=== PATIENT | female | born 1990 | race Hispanic/Latino ===

== ENCOUNTER 2017-11-06 21:22 | Emergency (ER) | payer OTHER ==
--- NOTE | 2017-11-06 23:52 | ER ---
Nurse's Notes [facility] Name: Dasha Gtz Age: 26 yrs Sex: Female : 1990 Arrival Date: 11/06/2017 Time: 21:34 Bed 29 Private MD: Diagnosis: Acute pharyngitis Presentation: 11/06 22:13 Presenting complaint: Patient states: she is having flu-like symptoms with runny nose, bb and sore throat thinks she had fever but did not check pt is breast feeding. Transition of care: patient was not received from another setting of care. Onset of symptoms is unknown. Initial Sepsis Screen: Does the patient meet any 2 criteria? No. Patient's initial sepsis screen is negative. Does the patient have a suspected source of infection? No. Patient's initial sepsis screen is negative. Care prior to arrival: None. 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 - Social history:: Smoking status: Patient/guardian denies using tobacco, Patient/guardian denies using alcohol, street drugs. Screenin:30 Abuse screen: Denies threats or abuse. Denies injuries from another. Nutritional kr2 screening: No deficits noted. Tuberculosis screening: No symptoms or risk factors identified. Fall Risk None identified. Assessment: 22:30 General: Appears in no apparent distress. comfortable, well groomed, well developed, kr2 well nourished, Behavior is calm, cooperative, appropriate for age. Pain: Denies pain. Neuro: Level of Consciousness is awake, alert, obeys commands, Oriented to person, place, time, situation. Cardiovascular: Capillary refill < 3 seconds in bilateral fingers Patient's skin is warm and dry. Respiratory: Reports cough that is non-productive, Airway is patent Respiratory effort is even, unlabored, Respiratory pattern is regular, symmetrical, Breath sounds are clear bilaterally. GI: Abdomen is flat, non-distended. : No signs and/or symptoms were reported regarding the genitourinary system. EENT: Nares are clear bilaterally Oral mucosa is moist. EENT: Reports nasal congestion sore throat. Derm: Skin is intact, is healthy with good turgor, Skin is pink, warm \T\ dry. Musculoskeletal: Circulation, motion, and sensation intact. 11/07 00:07 Reassessment: Patient appears in no apparent distress at this time. Patient and/or kr2 family updated on plan of care and expected duration. Pain level reassessed. Patient is alert, oriented x 3, equal unlabored respirations, skin warm/dry/pink. Patient denies pain at this time. Vital Signs: 11/06 22:14 BP 122 / 79; Pulse 66; Resp 18 S; Temp 98.4(O); Pulse Ox 99% on R/A; Weight 86.18 kg bb (R); Height 5 ft. 1 in. (154.94 cm) (R); Pain 6/10; 11/07 00:07 BP 120 / 79; Pulse 68; Resp 17; Pulse Ox 99% on R/A; kr2 11/06 22:14 Body Mass Index 35.90 (86.18 kg, 154.94 cm) ED Course: 11/06 21:34 Patient arrived in ED. al2 22:14 Triage completed. bb 22:14 Arm band placed on Patient placed in waiting room, Patient notified of wait time. bb Family accompanied patient. 22:22 Blossom Be FNP-C [facility]. kb 22:22 Josh Enriquez MD is Attending Physician. kb 22:24 Mery Quezada, SHIKHA is Primary Nurse. kr2 22:30 Patient has correct armband on for positive identification. Bed in low position. Call kr2 light in reach. Side rails up X2. Pulse ox on. NIBP on. Door closed. Warm blanket given. Head of bed elevated. 22:30 No provider procedures requiring assistance completed. Patient did not have IV access kr2 during this emergency room visit. Administered Medications: No medications were administered Outcome: 23:51 Discharge ordered by . kb 11/07 00:06 Discharged to home ambulatory, with family. kr2 Condition: good Discharge instructions given to patient, Instructed on discharge instructions, follow up and referral plans. Demonstrated understanding of instructions, follow-up care. 00:08 Patient left the ED. kr2 Signatures: Blossom Be [employer] WASTE MANAGEMENT ENGINEER-Beatris Hendricks, SHIKHA RN bb Mery Quezada RN RN kr2 Carina Kern
--- NOTE | 2017-11-06 23:52 | EDPHYS ---
Physician Documentation [facility] Name: Dasha Gtz Age: 26 yrs Sex: Female : 1990 Arrival Date: 11/06/2017 Time: 21:34 Bed 29 Private MD: ED Physician Josh Enriquez HPI: 11/06 23:49 This 26 yrs old Female presents to ER via Ambulatory with complaints of Flu kb Symptoms. 23:49 The patient presents with sore throat. The patient describes throat pain as constant. kb Onset: The symptoms/episode began/occurred 3 day(s) ago. Severity of symptoms: At their worst the symptoms were mild, moderate, in the emergency department the symptoms are unchanged. Modifying factors: The symptoms are alleviated by nothing, the symptoms are aggravated by nothing, Patient's oral intake status: good Denies contact with similarly ill indivduals. Associated signs and symptoms: Pertinent positives: rhinorrhea, Sore throat. The patient has not experienced similar symptoms in the past. The patient has not recently seen a physician. 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 - Social history:: Smoking status: Patient/guardian denies using tobacco, Patient/guardian denies using alcohol, street drugs. ROS: 23:49 Constitutional: Negative for fever, chills, and weight loss, Cardiovascular: Negative kb for chest pain, palpitations, and edema, Respiratory: Negative for shortness of breath, cough, wheezing, and pleuritic chest pain, Abdomen/GI: Negative for abdominal pain, nausea, vomiting, diarrhea, and constipation, MS/Extremity: Negative for injury and deformity, Skin: Negative for injury, rash, and discoloration, Neuro: Negative for headache, weakness, numbness, tingling, and seizure. 23:49 ENT: Positive for rhinorrhea, sore throat. Exam: 23:49 Constitutional: This is a well developed, well nourished patient who is awake, alert, kb and in no acute distress. Head/Face: Normocephalic, atraumatic. ENT: Nares patent. No nasal discharge, no septal abnormalities noted. Tympanic membranes are normal and external auditory canals are clear. Oropharynx with no redness, swelling, or masses, exudates, or evidence of obstruction, uvula midline. Mucous membranes moist. Neck: Trachea midline, no thyromegaly or masses palpated, and no cervical lymphadenopathy. Supple, full range of motion without nuchal rigidity, or vertebral point tenderness. No Meningismus. Chest/axilla: Normal chest wall appearance and motion. Nontender with no deformity. No lesions are appreciated. Cardiovascular: Regular rate and rhythm with a normal S1 and S2. No gallops, murmurs, or rubs. Normal PMI, no JVD. No pulse deficits. Respiratory: Lungs have equal breath sounds bilaterally, clear to auscultation and percussion. No rales, rhonchi or wheezes noted. No increased work of breathing, no retractions or nasal flaring. Abdomen/GI: Soft, non-tender, with normal bowel sounds. No distension or tympany. No guarding or rebound. No evidence of tenderness throughout. Back: No spinal tenderness. No costovertebral tenderness. Full range of motion. Skin: Warm, dry with normal turgor. Normal color with no rashes, no lesions, and no evidence of cellulitis. MS/ Extremity: Pulses equal, no cyanosis. Neurovascular intact. Full, normal range of motion. Neuro: Awake and alert, GCS 15, oriented to person, place, time, and situation. Cranial nerves II-XII grossly intact. Motor strength 5/5 in all extremities. Sensory grossly intact. Cerebellar exam normal. Normal gait. Vital Signs: 22:14 BP 122 / 79; Pulse 66; Resp 18 S; Temp 98.4(O); Pulse Ox 99% on R/A; Weight 86.18 kg bb (R); Height 5 ft. 1 in. (154.94 cm) (R); Pain 6/10; 11/07 00:07 BP 120 / 79; Pulse 68; Resp 17; Pulse Ox 99% on R/A; kr2 11/06 22:14 Body Mass Index 35.90 (86.18 kg, 154.94 cm) bb MDM: 11/06 22:23 Patient medically screened. stephy 23:49 Data reviewed: vital signs, nurses notes. Data interpreted: Pulse oximetry: on room air kb is 99 %. Interpretation: normal. Counseling: I had a detailed discussion with the patient and/or guardian regarding: the historical points, exam findings, and any diagnostic results supporting the discharge/admit diagnosis, lab results, the need for outpatient follow up, a family practitioner, to return to the emergency department if symptoms worsen or persist or if there are any questions or concerns that arise at home. 11/06 23:08 Order name: Influenza Screen (A ; Complete Time: 23:34 EDMS 11/06 23:08 Order name: Group A Streptococcus Rapid Sc; Complete Time: 23:34 EDMS 11/06 23:34 Order name: Throat Culture EDMS Administered Medications: No medications were administered Disposition: 11/06/17 23:51 Discharged to Home. Impression: Acute pharyngitis. - Condition is Stable. - Discharge Instructions: Viral Infections, [id number], Sore Throat, [id number]. - Medication Reconciliation Form, Thank You Letter, Antibiotic Education, Prescription Opioid Use form. - Follow up: Emergency Department; When: As needed; Reason: Worsening of condition. Follow up: Private Physician; When: 2 - 3 days; Reason: Recheck today's complaints, Continuance of care, Re-evaluation by your physician. Addendum: 11/08/2017 18:59 Co-signature as Attending Physician, Josh Enriquez MD I agree with the assessment and c goel plan of care. Signatures: Dispatcher [employer]DAZ Blossom Be, PROJECT ACCOUNT MANAGER-C PROJECT ACCOUNT MANAGER-Ckb Josh Enriquez MD MD cha Ballard, Brenda, RN RN Mery Brock RN RN kr2
== END 2017-11-07 00:08 | disposition home or self-care (01) ==
LOC: ER 21:22
DX: J02.9 Acute pharyngitis, unspecified (principal); Z88.6 Allergy status to analgesic agent
CPT/HCPCS: 87070; 87081; 87804; 99283